=== PATIENT | female | born 1960 | race Caucasian/White ===

== ENCOUNTER → 2020-09-10 09:22 | Outpatient (CLI) | payer BC, SELFPAY ==
--- NOTE | ~2020-09-10 | XR_ITS ---
EXAMINATION: XR lumbar spine 2-3V EXAM DATE: 09/10/2020 09:50 INDICATION: Lbp For 2 Months,Rt L3-4-5 Radiculopathy, Fall 4 Mos Ago. TECHNIQUE: Lumber spine frontal, lateral, lateral L5-S1 projections for interpretation. There is no prior study for comparison. FINDINGS: There is moderate disc disease L1-2, mild to moderate at L2-3 and mild at the lower lumbar levels. The vertebral bodies are aligned in the AP dimension. There are no acute fractures identifie d. Mild to moderate facet arthropathy. Sacrum, sacroiliac joints, sacral arcuate lines are intact. Pa raspinal soft tissue is unremarkable. There may be gallstones layering in the gallbladder. IMPRESSION: Mild to moderate lumbar spondylosis. Reviewed, dictated and finalized at location A. 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
== END ==
PROVIDERS: PCP Family Medicine; Visit Provider Chiropractor
DX: M47.896 Other spondylosis, lumbar region (principal)
CPT/HCPCS: 72100

== ENCOUNTER 2022-05-31 12:34 | Emergency (ER) | payer BC, SELFPAY ==
--- NOTE | ~2022-05-31 | XR_ITS ---
XR ankle LT 2V DATE: 05/31/2022 16:34 INDICATION: Unable to bear weight on left leg TECHNIQUE: AP and lateral views COMPARISON: None FINDINGS: Mild plantar calcaneal enthesopathy. No fracture or dislocation of the ankle or disruption of the ankle mortise. No periosteal reaction or bone destruction. IMPRESSION: Mild plantar calcaneal enthesopathy Reviewed, dictated and finalized at location B.
--- NOTE | ~2022-05-31 | XR_ITS ---
EXAM: XR knee LT 3V DATE: 05/31/2022 14:38 HISTORY: felt a pop while walking, left knee lateral pain . COMPARISON: None available. FINDINGS: Normal mineralization. No fracture or dislocation. No lytic or blastic lesion. Joint space s are maintained. No erosion or periosteal change. Soft tissues within normal limits. IMPRESSION: No acute osseous finding in the left knee. Reviewed, dictated and finalized at location K.
[2022-05-31 12:37] VITALS: BP 149/88; PULSE 63; RESP 16; TEMP 36.2; O2SAT 97
[2022-05-31] MEDS: HYDROcodone/acetaminophen (*CRX) 5-325 MG TABLET 1 TAB PO (16:03)
--- NOTE | 2022-05-31 16:28 | ED.LOWEXIN ---
HPI - Extremity Injury (Lower) General Chief Complaint: Extremity Injury, Lower Stated Complaint: Fall injury, left leg pain Time Seen by Provider: 05/31/22 15:48 Source: patient Mode of arrival: ambulatory Limitations: no limitations History of Present Illness HPI Narrative: 62 years old white female came to the emergency room because of severe pain behind left knee and left leg laterally. 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 Patient denies other injuries Related Data Allergies Allergy/AdvReac Type Severity Reaction Status Date / Time adhesive Allergy Unknown Unknown Verified 07/13/21 14:52 egg Allergy Unknown crohns act Verified 07/13/21 14:52 up niacin Allergy Unknown Nausea Verified 07/13/21 14:52 omega-3 acid ethyl esters Allergy Unknown Nausea Verified 07/13/21 14:52 [Lovaza] Review of Systems Review of Systems: All systems reviewed & are unremarkable except as noted in HPI and below PMFSH Past Medical History Medical History Acute bronchitis Surgical History Surgical History H/O cardiac catheterization H/O section H/O tubal ligation H/O: hysterectomy Hx of tonsillectomy Family History Family History Sibling Family history of cardiovascular disease Acute myocardial infarction Family history of congestive heart failure Other Family history of renal failure Social History Social History Alcohol intake: current Course Vital Signs Vital signs: Vital Signs Temperature 36.2 C L 05/31/22 12:37 Pulse Rate 63 05/31/22 12:37 Respiratory Rate 16 05/31/22 12:37 Blood Pressure 149/88 H 05/31/22 12:37 Pulse Oximetry 97 05/31/22 12:37 Oxygen Delivery Room Air 05/31/22 12:37 Temperature 36.2 C L 05/31/22 12:37 Pulse Rate 63 05/31/22 12:37 Respiratory Rate 16 05/31/22 12:37 Blood Pressure 149/88 H 05/31/22 12:37 Pulse Oximetry 97 05/31/22 12:37 Oxygen Delivery Room Air 05/31/22 12:37 MDM - Extremity Injury (Lower) Differential Diagnosis Differential diagnosis: Likely other (Fracture fibula) Imaging Data Radiologist's impression: Impressions Knee X-Ray 05/31/22 14:40 IMPRESSION: No acute osseous finding in the left knee. Ankle X-Ray 05/31/22 16:36 IMPRESSION: Mild plantar calcaneal enthesopathy Critical Care Time Critical Care Time Critical Care Time: Yes Total Critical Care Time: 20 Discharge Plan Discharge Clinical Impression: Left knee sprain Patient Disposition: Home, Self-Care Condition: Stable Instructions: Antibiotic Form, Knee Sprain (DC), Knee Immobilizer (ED) Additional Instructions: Return if symptoms are worsening , call your family physician for appointment, take Tylenol as as needed for aches and pain, continue home medications., Do not put weight on the left foot, crutches, Prescriptions: New naproxen [Naprosyn] 500 mg tablet 500 mg PO BID PRN (Reason: pain) Qty: 14 0RF No Action pantoprazole 40 mg tablet,delayed release (DR/EC) See Rx Instructions .ROUTE .COMPLEX Qty: 90 3RF Dose Instruction: TAKE 1 TABLET EVERY MORNING Rx Instructions: TAKE 1 TABLET EVERY MORNING triamterene-hydrochlorothiazid 37.5-25 mg tablet See Rx Instructions .ROUTE .COMPLEX Qty: 90 3RF Dose Instruction: TAKE 1 TABLET DAILY IN THE MORNING Rx Instructions: TAKE 1 TABLET DAILY IN THE MORNING Asmanex HFA 200 mcg/actuation HFA aerosol inhaler 2 inhalation INHALATION BID Qty: 13 0RF Breo Ellipta 100-25 mcg/dose blister with device 1 inhalation INHALATION DAILY Qty: 60 1RF albuterol sulfate 90 mcg/actuation HFA aerosol inhaler
== END 2022-05-31 18:25 | disposition home or self-care (01) ==
PROVIDERS: Emergency Provider Emergency Medicine; PCP Physician Assistant
DX: S83.92XA Sprain of unspecified site of left knee, initial encounter (principal); X50.0XXA Overexertion from strenuous movement or load, initial encounter
CPT/HCPCS: 73562; 73600; 99284; A9270

== ENCOUNTER 2022-12-09 01:56 | Day surgery (SDC) | payer BC, SELFPAY ==
[2022-11-29 12:09] VITALS: BMI 32.0
[2022-12-09 08:15] VITALS: BP 118/84; PULSE 61; RESP 16; O2SAT 97
[2022-12-09] MEDS: LACTATED RINGERS 1,000 ML 150 ML IV CONT (08:25)
--- NOTE | 2022-12-09 08:43 | WPDANESEPPF ---
Anes - Initial Pre Proc Eval Procedure: Operation Date: 12/09/22 09:00 Proposed Procedures p Colonoscopy - Soham Aj MD Date/Time: 12/09/22 08:43 Surgeon: Soham Aj MD Pre Op Diagnosis: Crohn's Disease Patient Data Age: 62 Gender: F Height: 1.6 m Weight: 78.3 kg Last Vital Signs Pulse 61 12/09/22 08:15 Resp 16 12/09/22 08:15 BP 118/84 12/09/22 08:15 Pulse Ox 97 12/09/22 08:15 O2 Del Method Room Air 12/09/22 08:15 Allergies Allergy/AdvReac Type Severity Reaction Status Date / Time adhesive Allergy Unknown Unknown Verified 12/09/22 08:13 egg Allergy Unknown crohns act Verified 12/09/22 08:13 up niacin Allergy Unknown Nausea Verified 12/09/22 08:13 omega-3 acid ethyl esters Allergy Unknown Nausea Verified 12/09/22 08:13 [Lovaza] nirmatrelvir AdvReac Abdominal Verified 12/09/22 08:13 [From Paxlovid (EUA)] Pain, vomiting ritonavir AdvReac Abdominal Verified 12/09/22 08:13 [From Paxlovid (EUA)] Pain, vomiting Home Medications Medication Instructions Recorded Confirmed Type metoprolol tartrate 100 mg tablet See Rx Instructions .Route 12/17/21 12/09/22 Rx .COMPLEX #90 tabs ferrous fumarate 324 mg (106 mg 324 mg PO BID #180 tabs 12/28/21 12/09/22 Rx iron) tablet (Ferrocite) atorvastatin 20 mg tablet See Rx Instructions .Route 02/23/22 12/09/22 Rx .COMPLEX #90 tabs fenofibric acid (choline) 135 mg See Rx Instructions .Route 08/02/22 12/09/22 Rx capsule,delayed release .COMPLEX #90 caps fluoxetine 20 mg capsule See Rx Instructions .Route 08/02/22 12/09/22 Rx .COMPLEX #90 caps pantoprazole 40 mg tablet,delayed 40 mg PO QAM #90 tabs 08/27/22 12/09/22 Rx release mesalamine 500 mg capsule,extended 2,000 mg PO BID #720 caps 10/22/22 12/09/22 Rx release (Pentasa) triamterene 37.5 1 tablet PO QAM #90 tabs 11/08/22 12/09/22 Rx mg-hydrochlorothiazide 25 mg tablet sodium,potassium,mag sulfates 17.5 See Rx Instructions PO .COMPLEX 11/25/22 12/09/22 Rx gram-3.13 gram-1.6 gram oral soln #354 mL cyanocobalamin (vitamin B-12) 1,000 mcg PO DAILY #90 tabs 11/29/22 12/09/22 Rx 1,000 mcg tablet fluticasone furoate 100 1 inh inhalation DAILY PRN 11/29/22 12/09/22 History mcg-vilanterol 25 mcg/dose Shortness Of Breath inhalation powder (Breo Ellipta) Patient hx anesthesia problems: none Family hx anesthesia problems: none Results Review: All pre-operative results and documents have been reviewed as part of the pre-operative evaluation. [facility] Past Medical History Medical History Acute bronchitis Left knee injury Surgical History Surgical History H/O cardiac catheterization H/O section H/O tubal ligation H/O: hysterectomy Hx of tonsillectomy Family History Family History Sibling Family history of cardiovascular disease Acute myocardial infarction Family history of congestive heart failure Other Family history of renal failure Social History Social History Smoking status: Never smoker Alcohol intake: current Alcohol use details: 1 Q 6 MONTHS Substance use: never Substance use type: does not use Lack of Transportation: No Lack of Food: Never True Current Housing: I Have Housing Concerned About Future Housing: No Difficulty Paying Gas/Electric Bills: No Difficulty Paying for Meds: No Currently Unemployed: No Education: High School Diploma/GED Difficulty w/ Childcare or Family Care: No Living arrangements: with family Spiritual care concerns: No Anes - Eval Final PreProcedure Day of Procedure 12/09/22 08:43 Patient weight: obese Heart: regular rate and rhythm Lungs: clear to auscultation Airway: Mallampati scale class II Gume
--- NOTE | 2022-12-09 09:05 | WPDHPUPDATE1 ---
History and Physical Update Update Date/Time: 12/09/22 09:05 History and Physical has been reviewed, including an updated exam of the patient. There are NO changes in the patient's condition. Risks, benefits, and alternatives have been discussed and questions answered. Patient agrees to proceed with procedure.
[2022-12-09 09:31] VITALS: BP 100/56; PULSE 56; RESP 18; O2SAT 96
[2022-12-09 09:41] VITALS: BP 102/54; PULSE 60; RESP 18; O2SAT 96
[2022-12-09 09:51] VITALS: BP 129/72; PULSE 54; RESP 18; O2SAT 97
== END 2022-12-09 10:11 | disposition home or self-care (01) ==
PROVIDERS: PCP Family Medicine; Visit Provider Internal Medicine Gastroenterology
PROC: 0DJD8ZZ Inspection of Lower Intestinal Tract, Via Natural or Artificial Opening Endoscopic (ICD-10-PCS; CPT 45378; principal; 2022-12-09 09:00)
DX: Z12.11 Encounter for screening for malignant neoplasm of colon (principal); K64.8 Other hemorrhoids; K50.10 Crohn's disease of large intestine without complications; E66.9 Obesity, unspecified; Z68.30 Body mass index [BMI] 30.0-30.9, adult
CPT/HCPCS: 45380; 88305; J2704; J7120

== ENCOUNTER 2023-01-25 08:33 | Outpatient (CLI) | payer BC, SELFPAY ==
--- NOTE | ~2023-01-25 | MM_ITS ---
EXAMINATION: MM screening [facility] BI w taye HISTORY: Screening TECHNIQUE: Craniocaudal and mediolateral oblique 3-D tomosynthesis images were obtained and synthetic 2-D images were generated. CAD analysis was submitted and interpreted. COMPARISON: Comparison to multiple prior studies sequentially, with oldest reviewed study dated 08/01. BREAST PARENCHYMAL COMPOSITION: There are scattered areas of fibroglandular density. FINDINGS: There is no evidence of suspicious mass, calcification, or architectural distortion to sugg est malignancy in either breast. There has been no suspicious interval change. IMPRESSION: 1. No mammographic evidence of malignancy. 2. Recommend routine screening mammography in one year. BI-RADS Category 1: Negative Reviewed, dictated and finalized at location A.
--- NOTE | ~2023-01-25 | DEXA_ITS ---
Bone Density Report Name: KULDEEP OROURKE Age: 62 Sex: Female Ethnicity: White Date of : 1960 Indication: postmenopausal; screening for osteoporosis; inflammatory bowel disease; hysterectomy; Referring Provider: JOSE PERES Study: Bone densitometry was performed. Exam Date: January 25, 2023 Accession number: [id number] Bone Density: Region BMD T-score Z-score Classification AP Spine(L2, L3, L4) 0.926 -1.4 0.4 Osteopenia Femoral Neck (Left) 0.626 -2.0 -0.6 Osteopenia Total Hip (Left) 0.816 -1.0 0.1 Normal Femoral Neck (Right) 0.613 -2.1 -0.7 Osteopenia Total Hip (Right) 0.795 -1.2 0.0 Osteopenia Total Hip Mean 0.805 -1.1 0.1 Osteopenia World Health Organization criteria for BMD impression classify patients as: Normal (T-score at or above -1.0), Osteopenia (T-score between -1.0 and -2.5), or Osteoporosis (T-score at or below -2.5). 10-year Fracture Risk(1): Major Osteoporotic Fracture 10% Hip Fracture 1.4% Reported Risk Factors: [place] (), Neck BMD=0.613, BMI=31.9 (1) FRAX(R) Version 3.08. Fracture probability calculated for an untreated patient. Fracture probability may be lower if the patient has received treatment. Previous Exams: Region Exam Age BMD T-score BMD Change BMD Change Date g/cm2 vs Baseline vs Previous AP Spine (L2-L4) 01/25/2023 62 0.926 -1.4 -0.104 (-10.1% -0.052 (-5.3%) 10/22/2019 59 0.978 -0.9 -0.052 (-5.0%) -0.038 (-3.7%) 08/27/2015 55 1.016 -0.6 -0.014 (-1.4%) -0.014 (-1.4%) 09/29/2011 51 1.030 -0.4 Total Hip(Left) 01/25/2023 62 0.816 -1.0 -0.063 (-7.2%) -0.066 (-7.4%) 10/22/2019 59 0.881 -0.5 0.002 (0.3%) 0.029 (3.3%)# 08/27/2015 55 0.853 -0.7 -0.026 (-3.0%) -0.026 (-3.0%) 09/29/2011 51 0.879 -0.5 Total Hip(Right) 01/25/2023 62 0.795 -1.2 -0.052 (-6.1%) -0.129 (-13.9% 10/22/2019 59 0.924 -0.1 0.077 (9.1%)* 0.090 (10.8%)# 08/27/2015 55 0.834 -0.9 -0.013 (-1.5%) -0.013 (-1.5%) 09/29/2011 51 0.847 -0.8 *Denotes significance at 95% confidence level, LSC for AP Spine = 0.022 g/cm2, LSC for Total Hip = 0.027 g/cm2 # Denotes dissimilar scan types or analysis methods Clinical Information Provided by Patient: Has used the following medications: Calcium Has the following medical conditions: Inflammatory bowel diseases, Hysterectomy, krohns Patient maximum height was 63 Menopause Age: 45 Onset of menses at age 13 Number of children 2
== END 2023-01-25 08:34 | disposition home or self-care (01) ==
PROVIDERS: PCP Family Medicine; Visit Provider Family Medicine
DX: Z12.31 Encounter for screening mammogram for malignant neoplasm of breast (principal); Z78.0 Asymptomatic menopausal state; M85.88 Other specified disorders of bone density and structure, other site; M85.852 Other specified disorders of bone density and structure, left thigh; M85.851 Other specified disorders of bone density and structure, right thigh
CPT/HCPCS: 77063; 77067; 77080

== ENCOUNTER → 2023-03-29 08:44 | Outpatient (CLI) | payer BC, SELFPAY ==
--- NOTE | ~2023-03-29 | US_ITS ---
EXAMINATION: US renal BI DATE: 03/29/2023 09:19 INDICATION: Chronic kidney disease, stage IIIB. TECHNIQUE: Multiple ultrasound grayscale images of the kidneys were obtained. COMPARISON: CT abdomen and pelvis 02/20/2018 FINDINGS: The right kidney measures 7.6 x 3.6 x 3.6 cm. The left kidney measures 10.0 x 5.3 x 5.6 cm. The kidne ys demonstrate normal parenchymal echogenicity. There is no hydronephrosis. The bladder is normal. IMPRESSION: 1. Mild atrophy of right kidney. No hydronephrosis. Reviewed, dictated and finalized at location L.
== END ==
PROVIDERS: PCP Internal Medicine Nephrology; Visit Provider Internal Medicine Nephrology
DX: I12.9 Hypertensive chronic kidney disease with stage 1 through stage 4 chronic kidney disease, or unspecified chronic kidney disease (principal); N18.32 Chronic kidney disease, stage 3b
CPT/HCPCS: 76775

== ENCOUNTER → 2023-08-11 09:22 | Outpatient (CLI) | payer BC, SELFPAY ==
--- NOTE | ~2023-08-11 | XR_ITS ---
EXAMINATION: XR toe 2nd LT min 2V INDICATION: Pain and swelling of the left second toe, initial encounter TECHNIQUE: Four views of the left second toe were obtained. COMPARISON: None available FINDINGS: There is an acute, traumatic, oblique fracture at the dorsal base of the second distal phal anx which extends to the articular surface. The fracture appears to involve less than 50% of the marco cular surface. There is soft tissue swelling of the toe. Mild flexion is seen at the second distal in terphalangeal joint. No additional acute osseous findings are evident. There is advanced osteoarthrit is at the first metatarsophalangeal joint. IMPRESSION: 1. Oblique intra-articular fracture at the dorsal base of the second distal phalanx. Reviewed, dictated and finalized at location L. IMPRESSION: 1. Oblique intra-articular fracture at the dorsal base of the second distal pha lanx.
== END ==
PROVIDERS: PCP Family Medicine; Visit Provider Emergency Medicine
DX: S92.532A Displaced fracture of distal phalanx of left lesser toe(s), initial encounter for closed fracture (principal)
CPT/HCPCS: 73660

== ENCOUNTER → 2023-08-31 09:10 | Outpatient (CLI) | payer BC, SELFPAY ==
--- NOTE | ~2023-08-31 | XR_ITS ---
EXAMINATION: XR toe 2nd LT min 2V DATE: 08/31/2023 09:31 INDICATION: Left foot second digit fracture. TECHNIQUE: 5 views of left second toe were obtained. COMPARISON: Left second toe radiographs 08/11/2022 FINDINGS: There is an avulsion fracture dorsal base of second distal phalanx with 1.7 mm distraction. There is mild osteoarthritis of second distal interphalangeal joint. IMPRESSION: 1. Avulsion fracture of dorsal base of second distal phalanx with slightly worsened distraction. Reviewed, dictated and finalized at location E. IMPRESSION: 1. Avulsion fracture of dorsal base of second distal phalanx with slightly wors ened distraction.
== END ==
PROVIDERS: PCP Family Medicine; Visit Provider Family Medicine
DX: S92.502D Displaced unspecified fracture of left lesser toe(s), subsequent encounter for fracture with routine healing (principal); X58.XXXD Exposure to other specified factors, subsequent encounter
CPT/HCPCS: 73660

== ENCOUNTER 2023-10-12 14:14 | Outpatient (CLI) | payer BC, SELFPAY ==
[2023-10-12 16:57] LABS: Toxigenic C. Diff NEGATIVE (NEGATIVE)
[2023-10-20 06:59] LABS: Calprotectin, Stool 167 mcg/g
== END 2023-10-12 14:15 | disposition home or self-care (01) ==
LOC: ANHLAB 14:15
PROVIDERS: PCP Family Medicine; Visit Provider Internal Medicine Gastroenterology
DX: K50.90 Crohn's disease, unspecified, without complications (principal)
CPT/HCPCS: 83993; 87045; 87427; 87449; 87493; 89055

== ENCOUNTER 2023-12-02 08:12 | Outpatient (CLI) | payer BC, SELFPAY ==
--- NOTE | ~2023-12-02 | XR_ITS ---
EXAMINATION: XR small bowel follow through DATE: 12/02/2023 09:35 INDICATION: Diarrhea. TECHNIQUE: Oral contrast was administered, and a time course of radiographs of the abdomen was obtain ed. Fluoroscopy of the small bowel was performed. Fluoroscopy exposure time was 0.4 minutes. The tota l number of images was 12. COMPARISON: Small bowel series 09/19/2017 FINDINGS: There are no dilated loops of bowel. The distal 20 cm of ileum demonstrate fold thickening with areas of mild stricture. Transit time from the stomach to proximal colon was approximately 15 minutes. IMPRESSION: 1. Fold thickening and areas of mild stricture involving the distal 20 cm of ileum, consistent with C rohn disease. Reviewed, dictated and finalized at location A. CANDLER IMPRESSION: 1. Fold thickening and areas of mild stricture involving the distal 20 cm of il eum, consistent with Crohn disease.
== END 2023-12-02 08:13 | disposition home or self-care (01) ==
PROVIDERS: PCP Family Medicine; Visit Provider Internal Medicine Gastroenterology
DX: R19.7 Diarrhea, unspecified (principal)
CPT/HCPCS: 74250

== ENCOUNTER 2024-05-21 17:01 | Emergency (ER) | payer BC, SELFPAY ==
--- NOTE | ~2024-05-21 | XR_ITS ---
EXAM: XR ankle RT min 3V DATE: 05/21/2024 17:38 HISTORY: fall PAIN ALL AROUND ANKLE JOINT . COMPARISON: None available. FINDINGS: Normal mineralization. Oblique distal right fibular fracture extending to the joint line ( Aragon type B). No lytic or blastic lesion. Plantar enthesopathy. Mild degenerative change at the tibi otalar joint. No erosion or periosteal change. Lateral and anterior ankle soft tissue swelling. Ankle joint effusion. IMPRESSION: Oblique nondisplaced distal right fibular fracture. Reviewed, dictated and finalized at location K.
[2024-05-21 17:03] VITALS: BP 166/74; PULSE 66; RESP 20; TEMP 36.6; O2SAT 98
--- NOTE | 2024-05-21 17:58 | ED.GENADULT ---
HPI - General Adult General Chief complaint: Extremity Injury, Lower Stated complaint: fall, R ankle injury Time Seen by Provider: 05/21/24 17:54 Source: patient Mode of arrival: ambulatory Limitations: no limitations History of Present Illness HPI narrative: This is a 64-year-old female who presents to the ED with chief complaint of right ankle injury occurring today around 16 30. Reports she fell while playing [email or web address] with her grandson. Reports pain and swelling all throughout the right ankle but no further sites of pain or injury. Denies numbness or weakness Related Data Home Medications Medication Instructions Recorded Confirmed fluticasone furoate 100 1 inh inhalation DAILY PRN 11/29/22 05/16/24 mcg-vilanterol 25 mcg/dose Shortness Of Breath inhalation powder (Breo Ellipta) fluticasone propionate 50 intranasal 05/16/24 05/16/24 mcg/actuation nasal spray,suspension Allergies Allergy/AdvReac Type Severity Reaction Status Date / Time adhesive Allergy Unknown Unknown Verified 05/16/24 12:58 egg Allergy Unknown crohns act Verified 05/16/24 12:58 up niacin Allergy Unknown Nausea Verified 05/16/24 12:58 omega-3 acid ethyl esters Allergy Unknown Nausea Verified 05/16/24 12:58 [Lovaza] [id number] Reductase AdvReac Severe pain from Verified 05/16/24 12:58 Inhibitor livalo and atorvastatin nirmatrelvir AdvReac Abdominal Verified 05/16/24 12:58 [From Paxlovid (EUA)] Pain, vomiting ritonavir AdvReac Abdominal Verified 05/16/24 12:58 [From Paxlovid (EUA)] Pain, vomiting Review of Systems Review of Systems: All systems as dictated in HPI [facility] Past Medical History Medical History Acute bronchitis Asthma CKD (chronic kidney disease) Crohn's disease colonoscopy 2..23: internal hemmies, on pentasa,repeat 5 years Fracture of second toe, left, closed Gastro-esophageal reflux disease without esophagitis Hypertriglyceridemia Iron deficiency Left knee injury Major depressive disorder, recurrent, moderate Toe injury Surgical History Surgical History H/O cardiac catheterization H/O section H/O tubal ligation H/O: hysterectomy Hx of tonsillectomy Family History Family History Sibling Family history of cardiovascular disease Acute myocardial infarction Family history of congestive heart failure Other Family history of renal failure Social History Social History Smoking status: Never smoker Alcohol intake: current Alcohol use details: 1 Q 6 MONTHS Substance use: never Substance use type: does not use Lack of Transportation: No Lack of Food: Never True Current Housing: I Have Housing Concerned About Future Housing: No Difficulty Paying Gas/Electric Bills: No Difficulty Paying for Meds: No Currently Unemployed: No Education: High School Diploma/GED Difficulty w/ Childcare or Family Care: No Living arrangements: with family Gender identity (if verbalized by the patient): Female Spiritual care concerns: No Exam Narrative: GENERAL: Well-appearing, well-nourished, and in no acute distress. MSK: Right ankle: Swelling to the lateral ankle. Tenderness in this region as well. No medial tenderness. Negative Castro test. Neurovascularly intact distally Left ankle: Benign SKIN: Warm, dry, no rash. NEURO: Alert and oriented x4. No focal deficits. PSYCH: Normal mood and affect. Course Vital Signs Vital signs: Vital Signs Temperature 97.8 F 05/21/24 17:03 Pulse Rate 66 05/21/24 17:03 Respiratory Rate 20 05/21/24 17:03 Blood Pressure 166/74 H 05/21/24 17:03 Pulse Oximetry 98 05/21/24 17:03 Oxygen Delivery Room Air 05/21/24 17:03 Tempera
== END 2024-05-21 18:52 | disposition home or self-care (01) ==
PROVIDERS: Emergency Provider Physician Assistant; PCP Family Medicine
DX: S82.831A Other fracture of upper and lower end of right fibula, initial encounter for closed fracture (principal); J45.909 Unspecified asthma, uncomplicated; N18.9 Chronic kidney disease, unspecified; E78.1 Pure hyperglyceridemia; E61.1 Iron deficiency; K50.90 Crohn's disease, unspecified, without complications; K21.9 Gastro-esophageal reflux disease without esophagitis; Z90.710 Acquired absence of both cervix and uterus; W18.30XA Fall on same level, unspecified, initial encounter; Y93.73 Activity, racquet and hand sports
CPT/HCPCS: 29515; 73610; 99284

== ENCOUNTER 2024-06-01 10:14 | Emergency (ER) | payer BC, SELFPAY ==
--- NOTE | ~2024-06-01 | CT_ITS ---
EXAMINATION: CT abdomen pelvis wo con DATE: 06/01/2024 11:44 INDICATION: Flank pain. TECHNIQUE: Computed tomography (CT) of the abdomen and pelvis was performed without intravenous contr ast. Automated exposure control and iterative reconstruction technique were employed. The dose-length product was 534.24 mGy-cm. COMPARISON: CT abdomen and pelvis 02/20/2018 FINDINGS: The visualized portions of the lung bases demonstrate chronic groundglass opacities with se ptal thickening. No pleural effusion. The heart size is normal. No pericardial effusion. There is a s mall sliding hiatal hernia. The liver is normal. There are gallstones in the gallbladder, which is no rmal in size. The spleen, pancreas, adrenal glands are normal. There is cortical thinning of the kidn eys. The appendix is normal. There are no dilated loops of bowel. There are no pathologically enlarge d lymph nodes. There is no free intraperitoneal fluid. There is mild thoracic and lumbar spondylosis. IMPRESSION: 1. No urolithiasis. 2. Stable chronic interstitial lung disease in a pattern of nonspecific interstitial pneumonia (NSIP) . Reviewed, dictated and finalized at location A. IMPRESSION: 1. No urolithiasis. 2. Stable chronic interstitial lung disease in a pattern of nonspecific interst itial pneumonia (NSIP).
[2024-06-01 10:16] VITALS: BP 131/83; PULSE 114; RESP 16; TEMP 36.8; O2SAT 96
--- NOTE | 2024-06-01 11:26 | ED.GENADULT ---
HPI - General Adult General Chief complaint: Unspecified <Rene Bruner APRN - Last Filed: 06/01/24 11:31> Stated complaint: Multiple Medical Concerns <Rene Bruner APRN - Last Filed: 06/01/24 11:31> Time Seen by Provider: 06/01/24 11:26 <Rene Bruner APRN - Last Filed: 06/01/24 11:31> patient presents with 2 days of flank pain, fever, and nausea. patient states she called her pcp on Tuesday with uti symptoms and was prescribed macrobid. patient states the symptoms got worse. patient denies hx of urinary issues. no other complaints. PE: A&OX3, bilateral CVA tenderness, abdomen is soft and super-pubic tenderness, HR tachycardic but regular, moving all extremities <Rene Bruner APRN - Last Filed: 06/01/24 11:31> Related Data Home medications: Home Medications Medication Instructions Recorded Confirmed fluticasone furoate 100 1 inh inhalation DAILY PRN 11/29/22 05/16/24 mcg-vilanterol 25 mcg/dose Shortness Of Breath inhalation powder (Breo Ellipta) fluticasone propionate 50 intranasal 05/16/24 05/16/24 mcg/actuation nasal spray,suspension <Rene Bruner APRN - Last Filed: 06/01/24 11:31> Allergies/adverse reactions: Allergies Allergy/AdvReac Type Severity Reaction Status Date / Time adhesive Allergy Unknown Unknown Verified 05/23/24 08:29 egg Allergy Unknown crohns act Verified 05/23/24 08:29 up niacin Allergy Unknown Nausea Verified 05/23/24 08:29 omega-3 acid ethyl esters Allergy Unknown Nausea Verified 05/23/24 08:29 [Lovaza] [id number] Reductase AdvReac Severe pain from Verified 05/23/24 08:29 Inhibitor livalo and atorvastatin nirmatrelvir AdvReac Abdominal Verified 05/23/24 08:29 [From Paxlovid (EUA)] Pain, vomiting ritonavir AdvReac Abdominal Verified 05/23/24 08:29 [From Paxlovid (EUA)] Pain, vomiting <Rene Bruner APRN - Last Filed: 06/01/24 11:31> [facility] Past Medical History Medical History: Medical History Acute bronchitis Asthma CKD (chronic kidney disease) Crohn's disease colonoscopy 2.07.23: internal hemmies, on pentasa,repeat 5 years Fracture of second toe, left, closed Gastro-esophageal reflux disease without esophagitis Hypertriglyceridemia Iron deficiency Left knee injury Major depressive disorder, recurrent, moderate Toe injury <Rene Bruner APRN - Last Filed: 06/01/24 11:31> Surgical History Surgical History: Surgical History H/O cardiac catheterization H/O section H/O tubal ligation H/O: hysterectomy Hx of tonsillectomy <Rene Bruner APRN - Last Filed: 06/01/24 11:31> Family History Family History: Family History Sibling Family history of cardiovascular disease Acute myocardial infarction Family history of congestive heart failure Other Family history of renal failure <Rene Bruner APRN - Last Filed: 06/01/24 11:31> Social History Social History: Social History Smoking status: Never smoker Alcohol intake: current Alcohol use details: 1 Q 6 MONTHS Substance use: never Substance use type: does not use Lack of Transportation: No Lack of Food: Never True Current Housing: I Have Housing Concerned About Future Housing: No Difficulty Paying Gas/Electric Bills: No Difficulty Paying for Meds: No Currently Unemployed: No Education: High School Diploma/GED Difficulty w/ Childcare or Family Care: No Living arrangements: with family Gender identity (if verbalized by the patient): Female Spiritual care concerns: No <Rene Bruner APRN - Last Filed: 06/01/24 11:31> Exam Narrative: APPEARANCE: No apparent distress. Head: atraumatic. EYES: EOMI, NOSE: Atraumatic NECK: Trac
[2024-06-01 11:50] LABS: Basophils Percent Auto 0.4 % (0.2-1.2); Eosinophils Percent Auto 0.2 % (0-4.4); Hematocrit 43.1 % (37.0-47.0); Hemoglobin 14.4 g/dL (12.0-15.0); Immature Granulocyte Absolute 0.05 K/mm3 (0.00-0.031); Immature Granulocyte Percent A 0.4 % (0-0.5); Lymphocytes Absolute Auto 0.76 K/mm3 (0.9-3.2); Lymphocytes Percent Auto 6.8 % (18.3-44.2); Mean Corpuscular HGB Conc 33.4 g/dl (32-36); Mean Corpuscular Hemoglobin 30.3 pg (26-34); Mean Corpuscular Volume 90.7 fl (80-100); Mean Platelet Volume 9.8 fl (7.4-10.4); Monocytes Absolute Auto 0.9 K/mm3 (0.1-0.6); Monocytes Percent Auto 7.7 % (2.6-8.5); Neutrophils Absolute Auto 9.5 K/mm3 (1.3-6.7); Neutrophils Percent Auto 84.5 % (45.5-73.1); Platelet Count Result 421 k/mm3 (150-375); Red Blood Count 4.75 M/mm3 (4.2-5.4); White Blood Count 11.2 K/mm3 (4.5-10.0)
[2024-06-01 11:59] LABS: Alanine Aminotransferase 30 U/L (6-35); Albumin Level 5.1 g/dL (3.5-5.1); Alkaline Phosphatase 131 U/L (38-126); Anion Gap 15 mmol/L (4-12); Aspartate Amino Transferase 61 U/L (14-36); Bilirubin,Total 0.9 mg/dL (0.2-1.3); Blood Urea Nitrogen 18 mg/dL (7-17); Calcium 10.2 mg/dL (8.4-10.2); Carbon Dioxide 25 mmol/L (22-30); Chloride 98 mmol/L (98-107); Estimated CRCL calculation 34 ml/min; Estimated Glomerular Filt Rate 35; Glucose 118 mg/dL (65-110); Partial Thromboplastin Time 30.6 Seconds (22.3-36.8); Potassium 3.9 mmol/L (3.4-5.0); Prothrombin Time 14.2 Seconds (11.1-14.7); Sodium 138 mmol/L (137-145)
[2024-06-01 14:36] LABS: Add Urine Microscopic? YES; Appearance Urine Cloudy (Clear); Bacteria Urine None Seen /hpf; Bilirubin Urine Negative (Negative); Blood Urine 1+ (Negative); Color Urine Yellow (Yellow); Glucose Urine UA Negative (Negative); Ketones Urine Negative (Negative); Leukocyte Esterase Ur 2+ LEU/UL (Negative); Nitrate Urine Negative (Negative); Non Pathogenic Casts 0-2; Protein Urine 2+ mg/dL (Negative); Specific Grav Ur 1.016 (1.001-1.035); Squamous Epithelial Cell Urine Occasional /hpf (Few); WBC Urine >100 /hpf (0-3); pH Urine 5.5 (5.0-9.0)
[2024-06-01 15:07] VITALS: BP 137/92; PULSE 99; RESP 18; O2SAT 94
[2024-06-01] MEDS: ACETAMINOPHEN 500 MG TABLET 1000 MG PO (15:26)
[2024-06-01] MEDS: SODIUM CHLORIDE 0.9% IV 2,000 ML 999 ML IV CONT (15:27)
[2024-06-01 15:36] VITALS: TEMP 36.8
[2024-06-01 16:21] VITALS: BP 124/68; PULSE 96; RESP 20; O2SAT 96
--- NOTE | 2024-06-01 16:27 | PC.NURSE ---
EDP Dr. Ferrera reports total of 2 L of IVF.
[2024-06-01 17:20] VITALS: BP 148/87; PULSE 88; RESP 15; TEMP 36.8; O2SAT 98
== END 2024-06-01 17:39 | disposition home or self-care (01) ==
PROVIDERS: Nurse Practitioner Family; Emergency Provider Emergency Medicine; PCP Family Medicine
DX: N39.0 Urinary tract infection, site not specified (principal); N18.9 Chronic kidney disease, unspecified; E78.1 Pure hyperglyceridemia; E61.1 Iron deficiency; K50.90 Crohn's disease, unspecified, without complications; K21.9 Gastro-esophageal reflux disease without esophagitis; F33.9 Major depressive disorder, recurrent, unspecified; Z79.899 Other long term (current) drug therapy; Z90.710 Acquired absence of both cervix and uterus; J84.9 Interstitial pulmonary disease, unspecified
CPT/HCPCS: 36415; 74176; 80053; 81001; 83605; 85025; 85610; 85730; 87040; 87086; 96365; 96366; 99284; A9270; J0696; J7030

== ENCOUNTER 2025-05-23 09:04 | Outpatient (CLI) | payer BC, SELFPAY ==
--- NOTE | ~2025-05-23 | XR_ITS ---
EXAM/ PROCEDURE: XR ankle RT min 3V - 05/23/2025 9:15 CDT HISTORY: 65 years old Female with Rt ankle 1 yr ago, continues with gen swelling x 1 wk COMPARISON: None available TECHNIQUE: Four view(s) FINDINGS/ IMPRESSION: There are no fractures or dislocations.Joint space narrowing, subchondral sclerosis, subchondral cyst formation and osteophyte formation, compatible with mild osteoarthritis. Reviewed, dictated and finalized at location A.
== END 2025-05-23 09:05 | disposition home or self-care (01) ==
LOC: GOSHIMG 09:04
PROVIDERS: PCP Family Medicine; Visit Provider Family Medicine
DX: M25.471 Effusion, right ankle (principal)
CPT/HCPCS: 73610

== ENCOUNTER 2025-07-20 18:12 | Emergency (ER) | payer BC, SELFPAY ==
--- NOTE | ~2025-07-20 | XR_ITS ---
EXAMINATION: XR abdomen obstructive series COMPARISON: No comparisons available. HISTORY: abd bloating, no b/m for 4 days. hx crohns FINDINGS: Moderate fecal content, no dilated bowel loops. Cholelithiasis. No acute osseous abnormality. Impression: 1. No acute abnormality. Reviewed, dictated and finalized at location A. Impression: 1. No acute abnormality.
--- OUTSIDE RECORDS SUMMARY | 2025-07-20 18:16 | XMS_ITS | Clinical Summary ---
Author Organization [facility] Address [address] [place] [phone] Phone Care Team Providers Care Lap Grinder Name Role Phone Unavailable Primary Care Provider Unavailabl e Medications triamterene-hydro CHLOROthiazide (MAXZIDE-25) 37.5-25 MG per tablet 1 tab/cap qday 11/30/2014 Active atorvastatin (LIPITOR) 20 MG tablet 1 tab/cap qday 11/30/2014 Active lansoprazole (PREVACID) [address] capsule 1 tab/cap qday 11/30/2014 Active aspirin (ST ILIANA) 81 MG EC tablet 1 tab/cap qday 11/30/2014 Active mesalamine (PENTASA) 500 MG CR capsule 4 tabs/caps bid 11/30/2014 Active choline fenofibrate (TRILIPIX) 135 MG capsule 1 tab/cap qhs 11/30/2014 Active FLUoxetine (PROzac) 10 MG capsule 1 tab/cap qday 11/30/2014 Active metoprolol tartrate (LOPRESSOR) 100 MG tablet 1 tab/cap qday 11/30/2014 Active Ferrous Fumarate 324 MG tablet 1 tab/cap bid 11/30/2014 Active Active Problems Problem Noted Date Diagnosed Date Hypertensive chronic kidney disease with stage 1 through stage 4 chronic kidney disease, or unspecified chronic kidney disease 09/23/2015 Chronic kidney disease, stage 2 (mild) 5 Unilateral small kidney 12/01/2014 Other hyperlipidemia 12/01/2014 Overview (01/13/2019): Converted unresolved ICD9, potential mismatch. Crohn's disease without complication 11/30/2014 Essential (primary) hypertension 11/30/2014 Gastro-esophageal reflux disease without esophag itis 11/30/2014 Anemia 11/30/2014 Major depressive disorder with single episode Other specified cardiac arrhythmia 11/30/2014 Family History Medical History Relation Comments Cerebrovascular accident Father Heart disease Father Hypertensive disorder Father Malignant neoplastic disease Father Cerebrovascular accident Mother Diabetes mellitus Mother Heart disease Mother Kidney disease Mother Relation Status Comments Father Mother Social History Tobacco Use Types Packs/Day Years Used Date Smoking Tobacco: Never Assessed Comments Unknown Sex and Gender Information Value Date Recorded Sex Assigned at Not on file Legal Sex Female 7:17 AM MST Gender Identity Not on file Sexual Orientation Not on file Last Filed Vital Signs Vital Sign Reading Time Taken Comments Blood Pressure 132/70 09/24/2015 12:01 AM RN UNIT MANAGER Sitting, Right Pulse - - Temperature 37.1 C (98.7 F) 09/24/2015 12:01 AM RN UNIT MANAGER Respiratory Rate - - Oxygen Saturation - - Inhaled Oxygen Concentration - - Weight 81.6 kg (180 lb) 09/24/2015 12:0 1 AM RN UNIT MANAGER Height 160 cm (5' 3) 09/24/2015 12:01 AM RN UNIT MANAGER Body Mass Index 31.89 09/24/2015 12:01 AM RN UNIT MANAGER Plan of Treatment Not on file
[2025-07-20 18:20] VITALS: BP 143/68; PULSE 70; RESP 18; TEMP 36.1; O2SAT 98
--- NOTE | 2025-07-20 18:23 | ED.ABDPAIN ---
HPI - Abdominal Pain General Chief Complaint: Abdominal Pain Stated Complaint: Stomach bloated Time Seen by Provider: 07/20/25 18:23 Source: patient Mode of arrival: ambulatory Limitations: no limitations History of Present Illness HPI narrative: Altagracia is a 65-year-old female patient presenting to the clinic today with complaints of abdominal bloating and no bowel movement x4 days. She reports prior to this she was having some nausea, vomiting, and diarrhea. History of Crohn's disease. States she has had small bowel obstruction in her ileum before and had to have NG tube. She is asking what medications she can take for constipation with Crohns disease. Was seeing Dr. jA for GI- has new appointment with GI specialist in 4 weeks. Denies any fever or chills. Rates the pain over the abdomen a 7/10. States it feels as though her abdomen is stretching. Is able to drinking keep fluids down and has been trying to stick to eating soups and keeping her diet bland. Take Pentasa for her Crohns. Related Data Home Medications ?Medication ?Instructions ?Recorded ?Confirmed ?Last Taken ?Type calcium carbonate 600 mg PO DAILY 08/02/24 05/22/25 Unknown History Allergies Allergy/AdvReac Type Severity Reaction Status Date / Time adhesive Allergy Unknown Unknown Verified 07/20/25 18:26 egg Allergy Unknown crohns act Verified 07/20/25 18:26 up niacin Allergy Unknown Nausea Verified 07/20/25 18:26 omega-3 acid ethyl esters Allergy Unknown Nausea Verified 07/20/25 18:26 (Lovaza) [id number] Reductase AdvReac Severe pain from Verified 07/20/25 18:26 Inhibitor livalo and atorvastatin nirmatrelvir (From Paxlovid AdvReac Abdominal Verified 07/20/25 18:26 (EUA)) Pain, vomiting ritonavir (From Paxlovid AdvReac Abdominal Verified 07/20/25 18:26 (EUA)) Pain, vomiting Review of Systems Review of Systems: Pertinent positives per HPI. Patient denies any fever, chills, rash, headache, visual changes, dizziness, cough, shortness of breath, chest pain, palpitations, diarrhea, or any urinary issues. [facility] Past Medical History Medical History Fracture of second toe, left, closed Toe injury CKD (chronic kidney disease) Iron deficiency Hypertriglyceridemia Crohn's disease colonoscopy 2.07.23: internal hemmies, on pentasa,repeat 5 years Left knee injury Acute bronchitis Gastro-esophageal reflux disease without esophagitis Major depressive disorder, recurrent, moderate Asthma Surgical History Surgical History H/O tubal ligation Hx of tonsillectomy H/O section H/O cardiac catheterization H/O: hysterectomy Family History Family History Sibling Family history of cardiovascular disease Acute myocardial infarction Family history of congestive heart failure Other Family history of renal failure Social History Social History Social History: Caffeine-coffee Smoking status: Never smoker Alcohol intake: current Alcohol use details: 1 Q 6 MONTHS Substance use: never Substance use type: does not use Do You Feel Safe in your Home?: Yes Lack of Transportation: No Lack of Food: Never True Current Housing: I Have Housing Concerned About Future Housing: No Difficulty Paying Gas/Electric Bills: No Difficulty Paying for Meds: No Currently Unemployed: No Education: High School Diploma/GED Difficulty w/ Childcare or Family Care: No Living arrangements: with family Gender identity (if verbalized by the patient): Female Spiritual care concerns: No Comments At the time of my signature, I reviewed and agree with the nursing past medical, surgical, social, and family history. There is no relevant family history pertinent to the patient complaint. Exam Narrative: General: Well-developed, well nourished, in no apparent distress. Head: Normocephalic, atraumatic. Cardio: Regular rate and rhythm, s1 and s2 normal, no murmur appreciated. Resp: Clear to auscultation bilaterally, no rhonchi, rales, wheezing or rubs. Abdomen: Soft, pliable, bowel sounds present in all quadrants, non-tender to palpation, no organomegly, no CVAT tenderness. Course Course Emergency Course: Portions of this record may have been created with voice recognition software. Level of Care: Express Care Visit Vital Signs Vital signs: Vital Signs Temperature 36.1 C L 07/20/25 18:20 Pulse Rate 70 09/20/25 18:20 Respiratory Rate 18 07/20/25 18:20 Blood Pressure 143/68 H 07/20/25 18:20 Pulse Oximetry 98 07/20/25 18:20 Oxygen Delivery Room Air 07/20/25 18:20 Temperature 36.1 C L 07/20/25 18:20 Pulse Rate 70 07/20/25 18:20 Respiratory Rate 18 07/20/25 18:20 Blood Pressure 143/68 H 07/20/25 18:20 Pulse Oximetry 98 07/20/25 18:20 Oxygen Delivery Room Air 07/20/25 18:20 Vital signs reviewed MDM - Abdominal Pain MDM Narrative Medical decision making narrative: At the time of visit patient is resting comfortably on the exam table. Patient appears to be nontoxic. Complaints of abdominal bloating and no bowel movement x4 days. She reports prior to this she was having some nausea, vomiting, and diarrhea. History of Crohn's disease. States she has had small bowel obstruction in her ileum before and had to have NG tube. She is asking what medications she can take for constipation with Crohns disease. Was seeing Dr. Aj for GI- has new appointment with GI specialist in 4 weeks. Denies any fever or chills. Rates the pain over the abdomen a 7/10. States it feels as though her abdomen is stretching. Is able to drinking keep fluids down and has been trying to stick to eating soups and keeping her diet bland. Take Pentasa for her Crohns. Obstructive series x-ray was ordered. Diagnostics: Obstructive abdominal series x-rays were performed. No acute abnormality. Does show cholelithiasis and a moderate stool burden. Plan: Patient has constipation. Recommend MiraLax and fiber. Recommend slowly increasing fiber in her diet starting with a tsp and she may take MiraLax twice a day for the 1st 3 days and then take it daily as needed. Follow up with her GI specialist or primary care doctor. Go to the emergency room if she develops any red flag symptoms. Supportive measures were discussed with the patient and they voiced understanding discharge instructions and agrees to treatment plan. Return precautions reviewed Differential Diagnosis Differential diagnosis: Likely abdominal pain, acute appendicitis, constipation, diverticulitis, gastroenteritis, pancreatitis and small bowel obstruction Imaging Data Radiologist's impression: ITS Impressions Abdomen X-Ray 07/20/25 18:54 Impression: 1. No acute abnormality. Discharge Plan Discharge Clinical Impression: Constipation Qualifiers: Constipation type: unspecified constipation type Qualified Code(s): K59.00 - Constipation, unspecified Patient Disposition: Home Condition: Stable Instructions: Antibiotic Form, Constipation (ED) Additional Instructions: X-ray shows moderate fecal contact without dilated bowel [id number] sign of obstruction Increase fluids and fiber in your diet Slowly increase fiber may use 1 tsp of Metamucil or Benefiber mixed in a drink daily May take MiraLax 1 scoop with 8 oz of water or juice twice daily for the first 3 days then may take daily as needed May take simethicone as directed/ needed for gas relief Follow-up with your GI specialist as scheduled Follow-up with your PCP in 2-3 days if your symptoms are persistent Go to the emergency room if her symptoms worsen-increase in bloating, no bowel movement, increase in pain, nausea, vomiting, or blood in your stool. Patient Language: Kyrgyz Prescriptions: No Action ezetimibe [Zetia] 10 mg tablet 10 mg PO DAILY Qty: 90 1RF fluticasone furoate-vilanterol [Breo Ellipta] 100-25 mcg/dose blister with device 1 inh INHALATION DAILY PRN (Reason: Shortness Of Breath) Qty: 60 0RF fluticasone propionate 50 mcg/actuation spray,suspension 2 spray intranasal DAILY Qty: 18.6 1RF calcium carbonate 600 mg calcium (1,500 mg) tablet 600 mg PO DAILY fenofibric acid (choline) 135 mg capsule,delayed release(DR/EC) 135 mg PO DAILY Qty: 90 1RF triamterene-hydrochlorothiazid 37.5-25 mg tablet 1 tablet PO QAM Qty: 90 1RF metoprolol tartrate 100 mg tablet See Rx Instructions .ROUTE .COMPLEX Qty: 90 1RF Dose Instruction: TAKE 1 TABLET DAILY Rx Instructions: TAKE 1 TABLET DAILY fluoxetine 20 mg capsule 20 mg PO DAILY Qty: 90 1RF ferrous fumarate [Ferrocite] 324 mg (106 mg iron) tablet 324 mg PO BID Qty: 180 1RF pantoprazole 40 mg tablet,delayed release (DR/EC) 40 mg PO QAM Qty: 90 1RF Follow-up/Referrals: Lazarus Hilliard MD [Primary Care Provider, [facility]] Time of Disposition: 19:05 Quality NIHSS Nursing Documentation ED NIHSS nursing documentation: reviewed/agree
== END 2025-07-20 19:10 | disposition home or self-care (01) ==
PROVIDERS: Emergency Provider Nurse Practitioner Family; PCP Family Medicine
DX: K59.00 Constipation, unspecified (principal); K50.90 Crohn's disease, unspecified, without complications; E78.1 Pure hyperglyceridemia; N18.9 Chronic kidney disease, unspecified; K21.9 Gastro-esophageal reflux disease without esophagitis; J45.909 Unspecified asthma, uncomplicated; E61.1 Iron deficiency; F33.9 Major depressive disorder, recurrent, unspecified
CPT/HCPCS: 74019; 99213; G0463